=== PATIENT | male | born 1995 | race Caucasian/White ===

== ENCOUNTER 2019-05-03 12:29 | Emergency (ER) | payer SELFPAY ==
[~2019-05-03] VITALS: Ht 172.7 cm; Wt 59.0 kg
[~2019-05-03 12:29] MED LIST: ARPZ10T; CEPH500C PO; LEVO500T78 PO
[2019-05-03] MEDS ORDERED: RT-ALBUTEROL/IPRATROPIUM 3 ML (DUONEB) VIAL INH ONE (12:45)
[2019-05-03] MEDS ORDERED: NS IV 1000 ML 1,000 ML IV SCH (12:45)
--- NOTE | 2019-05-03 12:47 | ED Respiratory ---
General Stated Complaint: HEADACHE;DIZZINESS;COUGHING BLOOD Source: patient Exam Limitations: no limitations History of Present Illness Date Seen by Provider: May 03, 2019 Time Seen by Provider: 12:44 Initial Comments This 23-year-old male presents with productive cough, hemoptysis, headache, dizziness, and general malaise for the last several days. Patient is a similar episode in the past secondary to pneumonia. Patient denies associated nausea or vomiting. He has had no stiff neck or photophobia. Patient is taking [id number]-[id number] medications but no prescriptions for his URI Allergies and Home Medications Allergies Coded Allergies: No Known Drug Allergies (Unverified , 11/05/08) Uncoded Allergies: NKDA (Allergy, Mild, 09/23/08) Patient Home Medication List Home Medication List Reviewed: Yes Review of Systems Review of Systems Constitutional: No chills; fever, malaise, weakness EENTM: no symptoms reported Respiratory: see HPI, cough Cardiovascular: No chest pain, No palpitations Gastrointestinal: no symptoms reported Genitourinary: no symptoms reported Musculoskeletal: no symptoms reported Skin: no symptoms reported Psychiatric/Neurological: No Symptoms Reported Hematologic/Lymphatic: No Symptoms Reported Immunological/Allergic: no symptoms reported Past Lpapxjw-Gbvhyz-Nndoyu Hx Past Med/Social Hx: Reviewed Nursing Past Med/Soc Hx Patient Social History Recent Foreign Travel: No Contact w/Someone Who Travel: No Immunizations Up To Date Tetanus Booster (TDap): Unknown Past Medical History Reproductive Disorders: No Physical Exam Vital Signs - First Documented 05/03/19 13:16 Pulse Ox 98 O2 Delivery Room Air Capillary Refill : Height: 5'8" Weight: 140lbs. oz. [id number]; BMI Method:Stated General Appearance: WD/WN, mild distress Eyes: Bilateral Eye Normal Inspection HEENT: normal ENT inspection Neck: non-tender, supple, normal inspection Respiratory: decreased breath sounds Cardiovascular: regular rate, rhythm Gastrointestinal: normal bowel sounds, non tender, soft Extremities: normal range of motion, normal inspection Neurologic/Psychiatric: no motor/sensory deficits, alert; No oriented x 3 Skin: normal color, warm/dry; No rash Focused Exam Lactate Level 05/03/19 12:35: Lactic Acid Level Laboratory Tests Test 05/03/19 12:35 Progress/Results/Core Measures Suspected Sepsis SIRS Temperature: Pulse: Respiratory Rate: Laboratory Tests 05/03/19 12:35: White Blood Count 3.2L Blood Pressure / Mean: 05/03/19 12:35: Laboratory Tests 05/03/19 12:35: Platelet Count 129L Results/Orders Lab Results Laboratory Tests Test 05/03/19 12:35 Range/Units White Blood Count 3.2 L 4.3-11.0 10^3/uL Red Blood Count 5.07 4.35-5.85 10^6/uL Hemoglobin 16.5 13.3-17.7 G/DL Hematocrit 46 40-54 % Mean Corpuscular Volume 92 80-99 FL Mean Corpuscular Hemoglobin 33 25-34 PG Mean Corpuscular Hemoglobin Concent 36 32-36 G/DL Red Cell Distribution Width 12.5 10.0-14.5 % Platelet Count 129 L 130-400 10^3/uL Mean Platelet Volume 11.9 H 7.4-10.4 FL Neutrophils (%) (Auto) 29 L 42-75 % Lymphocytes (%) (Auto) 49 H 12-44 % Monocytes (%) (Auto) 21 H 0-12 % Eosinophils (%) (Auto) 1 0-10 % Basophils (%) (Auto) 1 0-10 % Neutrophils # (Auto) 1.0 L 1.8-7.8 X 10^3 Lymphocytes # (Auto) 1.6 1.0-4.0 X 10^3 Monocytes # (Auto) 0.7 0.0-1.0 X 10^3 Eosinophils # (Auto) 0.0 0.0-0.3 10^3/uL Basophils # (Auto) 0.0 0.0-0.1 10^3/uL My Orders Orders - HOA GOULD MD Blood Culture (05/03/19 12:42) Lactic Acid Analyzer (05/03/19 12:42) Ns Iv 1000 Ml (Sodium Chloride 0.9%) (05/03/19 12:45) Albuterol/Ipra Inhalation Soln (Duoneb I (05/03/19 12:45) Svn Small Volume Nebulizer (05/03/19 12:42) Chest 1 View, Ap/Pa Only (05/03/19 13:01) Medications Given in ED Current Medications Medications Dose Ordered Sig/Jenae Route Start Time Stop Time Status Last Admin Dose Admin Albuterol/ Ipratropium 3 ml ONCE ONCE INH 05/03/19 12:45 05/03/19 12:46 DC 05/03/19 13:15 3 ML Vital Signs/I&O 05/03/19 13:16 Pulse Ox 98 O2 Delivery Room Air Capillary Refill : Progress Note : Time: 13:21 Progress Note The patient's white count was unremarkable. Patient's chest x-ray failed to demonstrate evidence of an infiltrate. I discussed findings with patient. We placed him on azithromycin and an albuterol inhaler. I asked that he follow-up with his caregiver on Tuesday. I asked him to return to emergency department if any further acute problems or questions. Departure Impression Primary Impression: Bronchitis Disposition: HOME, SELF-CARE Condition: Improved Departure-Patient Inst. Decision time for Depature: 13:22 Referrals: [facility]/PAUL WALTERS,LOCAL PHYSICIAN (PCP) Primary Care Physician Patient Instructions: Acute Bronchitis, Adult (DC) Add. Discharge Instructions: Zithromax and Ventolin inhalers prescribed. Close follow-up with [facility] on Tuesday. Return if any problems or questions. Scripts Albuterol Sulfate (VENTOLIN HFA) 1 Puff Puff 2 PUFF INH Q4H for 7 Days, PUFF 1 PUFF = 90 MCG Prov: HOA GOULD MD 05/03/19 Azithromycin (Zithromax) 250 Mg Tablet 250 MG PO UD, #6 TAB TAKE 2 TABLETS TODAY, THEN TAKE 1 TABLET DAILY FOR 4 MORE DAYS Prov: HOA GOULD MD 05/03/19 HOA GOULD MD May 03, 2019 12:47
[2019-05-03 13:18] LABS: BASOPHILS % (AUTO) 1 % (0-10); EOSINOPHILS % (AUTO) 1 % (0-10); HEMATOCRIT 46 % (40-54); HEMOGLOBIN 16.5 G/DL (13.3-17.7); LYMPHOCYTES # (AUTO) 1.6 X 10^3 (1.0-4.0); LYMPHOCYTES % (AUTO) 49 % (12-44); MEAN CORPUSCULAR HEMOGLOBIN 33 PG (25-34); MEAN CORPUSCULAR HGB CONC 36 G/DL (32-36); MEAN CORPUSCULAR VOLUME 92 FL (80-99); MEAN PLATELET VOLUME 11.9 FL (7.4-10.4); MONOCYTES # (AUTO) 0.7 X 10^3 (0.0-1.0); MONOCYTES % (AUTO) 21 % (0-12); NEUTROPHILS % (AUTO) 29 % (42-75); PLATELET COUNT 129 10^3/uL (130-400); RED CELL DISTRIBUTION WIDTH 12.5 % (10.0-14.5); WHITE BLOOD COUNT 3.2 10^3/uL (4.3-11.0)
--- NOTE | 2019-05-03 13:21 | Diagnostic Imaging Report ---
INDICATION: Headache and dizziness as well as cough and shortness of breath. TIME OF EXAM: 1:15 p.m. COMPARISON: No prior studies are available for comparison. FINDINGS: The heart size is normal. The pulmonary vascularity is unremarkable. The lungs are clear. No infiltrate, effusion or pneumothorax is detected. IMPRESSION: No acute cardiopulmonary process is detected. Dictated by: Dictated on workstation # [id number]
[2019-05-03] MEDS ORDERED: AZIT250T PO (13:24)
[2019-05-03] MEDS ORDERED: RT-ALBUINH INH (13:24)
[2019-05-03 13:30] VITALS: BP 122/94
[2019-05-03 13:35] LABS: INR 0.9 (0.8-1.4); PROTHROMBIN TIME PATIENT 12.7 SEC (12.2-14.7)
[2019-05-03 14:26] LABS: BAND NEUTROPHILS 4 %; BASOPHILS % (MANUAL) 0 %; EOSINOPHILS % (MANUAL) 1 %; LYMPHOCYTES % (MANUAL) 48 %; MONOCYTES % (MANUAL) 18 %; NEUTROPHILS % (MANUAL) 28 %; RBC MORPH NORMAL; REACTIVE LYMPHOCYTES 1 %
== END 2019-05-03 13:35 | disposition home or self-care (01) ==
LOC: EDUNIT# 12:29 → ER 12:30
DX: J40 Bronchitis, not specified as acute or chronic (principal)
CPT/HCPCS: 36415; 71045; 83605; 85007; 85027; 85610; 85730; 87040; 87804; 94640